=== PATIENT | female | born 1970 | race Caucasian/White ===

== ENCOUNTER 2017-11-06 15:14 | Emergency (ER) | payer MEDICAID ==
[~2017-11-06] VITALS: Ht 175.3 cm; Wt 104.3 kg
[2017-11-06 15:16] VITALS: BP 152/95
[2017-11-06 15:42] LABS: BASOPHILS # (AUTO) 0.04 x10^3/uL (0-0.1); BASOPHILS % (AUTO) 1 % (0-1); EOSINOPHILS # (AUTO) 0.28 x10^3/uL (0-0.4); EOSINOPHILS % (AUTO) 5 % (1-7); LYMPHOCYTES # (AUTO) 1.78 x10^3/uL (1-3.4); LYMPHOCYTES % (AUTO) 30 % (22-44); MD NO; MEAN CORPUSCULAR HEMOGLOBIN 33.3 pg (27.0-34.8); MEAN CORPUSCULAR HGB CONC 34.1 g/dL (32.4-35.8); MEAN CORPUSCULAR VOLUME 97.7 fL (80-100); MEAN PLATELET VOLUME 8.7 fL (7.4-10.4); MONOCYTES # (AUTO) 0.45 x10^3/uL (0.2-0.8); MONOCYTES % (AUTO) 8 % (2-9); NEUTROPHILS % (AUTO) 57 % (42-75); PLATELET COUNT 229 x10^3/uL (130-400); RED BLOOD COUNT 4.29 x10^6/uL (3.82-5.3); RED CELL DISTRIBUTION WIDTH 13.1 % (9.6-15.2)
[2017-11-06] MEDS ORDERED: HYDROcodone/APAP 5/325 TABLET PO ONE (15:43)
[2017-11-06] MEDS ORDERED: HYDROcodone/APAP 5/325 TABLET ONE (15:44)
[2017-11-06 15:48] LABS: ALBUMIN 3.9 g/dL (3.4-5.0); ANION GAP 8 mmol/L (5-15); CALCIUM 8.8 mg/dL (8.5-10.1); CHLORIDE 109 mmol/L (98-107); CREATININE 0.79 mg/dL (0.55-1.02)
[2017-11-06 16:47] LABS: ALANINE AMINOTRANSFERASE 44 U/L (12-78)
[2017-11-06 16:49] LABS: ALKALINE PHOSPHATASE 53 U/L (45-117); BILIRUBIN,TOTAL 0.3 mg/dL (0.2-1.0); TOTAL PROTEIN 7.2 g/dL (6.4-8.2)
== END 2017-11-06 17:21 | disposition home or self-care (01) ==
LOC: ED 16:50
DX: I87.2 Venous insufficiency (chronic) (peripheral) (principal); R60.9 Edema, unspecified
CPT/HCPCS: 36415; 71046; 80053; 83880; 85025; 99285

== ENCOUNTER 2018-07-16 17:56 | Emergency (ER) | payer MEDICAID ==
[~2018-07-16] VITALS: Ht 175.3 cm; Wt 100.2 kg
[2018-07-16 18:08] VITALS: BP 131/96
== END 2018-07-16 18:55 | disposition home or self-care (01) ==
LOC: ED 18:49
DX: H65.02 Acute serous otitis media, left ear (principal); H92.01 Otalgia, right ear; E11.9 Type 2 diabetes mellitus without complications
CPT/HCPCS: 99283